=== PATIENT | male | born 1945 | race Caucasian/White ===

== ENCOUNTER 2016-07-13 20:06 | Emergency (ER) | payer OTHER, MEDICARE ==
[~2016-07-13] VITALS: Ht 170.2 cm; Wt 90.2 kg
[~2016-07-13 20:06] MED LIST: ADULT LOW DOSE81 M1 PO; ATENOLOL25 MG PO; ATORVASTATIN CA20 MG PO; FLOMAX0.4 MG PO; FLUOROURACIL30 GM TP; LISINOPRIL10 MG PO; MACROBID100 MG PO; NORCO 5/3251 TABLET PO; OMEPRAZOLE20 MG PO; PYRIDIUM100 MG PO
[2016-07-13 20:34] LABS: ADD MIUA? YES; BILIRUBIN NEGATIVE; BLOOD LARGE; COLOR YELLOW ((YELLOW)); GLUCOSE (STRIP) NEGATIVE; KETONES NEGATIVE; LEUKOCYTES LARGE; NITRITE NEGATIVE; PROTEIN (STRIP) 100; SPECIFIC GRAVITY 1.019 (1.000-1.030); UROBILINOGEN 0.2 MG/DL (0.2-1.0)
[2016-07-13 20:49] LABS: EOSINOPHIL (%) 0 % (0-5); HEMATOCRIT 41.3 % (38.0-50.0); IMMATURE GRANULOCYTE (%) 0.4 % (0.0-0.7); IMMATURE GRANULOCYTE COUNT 0.6 K/uL; LYMPHOCYTE COUNT 0.5 K/uL (1.0-2.8); MCH 30.7 PG (29.0-34.0); MCHC 34.6 G/DL (30.0-36.0); MCV 88.6 FL (86-99); MEAN PLAT.VOLUME 10.5 uM^3 (9.0-12.4); MONOCYTE (%) 1.9 % (3-12); MONOCYTE COUNT 0.3 K/uL (0-0.8); NEUTROPHIL COUNT 13.1 K/uL (1.8-6.4); PLATELET COUNT 188 K/uL (156-360); RBC DIS.WIDTH-CV 13.1 % (11.8-14.6); RBC DIS.WIDTH-SD 41.6 % (39-53); RED BLOOD COUNT 4.66 M/uL (4.00-5.50)
[2016-07-13 20:50] LABS: WHITE BLOOD COUNT 13.9 K/uL (4.1-10.2)
[2016-07-13 20:57] LABS: CHLORIDE 105 mEq/L (99-109); SODIUM 137 mEq/L (136-147)
[2016-07-13 20:58] LABS: GLUCOSE 97 mg/dL (70-99)
[2016-07-13 21:00] LABS: ANION GAP 9 MEQ/L (2-14)
[2016-07-13 21:01] LABS: BACTERIA 1+ /HPF; CASTS NONE SEEN /LPF; CRYSTALS NONE SEEN; EPITHELIAL CELLS NONE SEEN /HPF; MUCUS NONE SEEN /LPF; RED BLOOD CELLS 15-20 /HPF (0-5); UCUL ADDED? YES; WHITE BLOOD CELLS TNTC /HPF (0-5)
[2016-07-13 21:02] LABS: GFR ESTIMATE (CALCULATED) > 59 mL/min/
[2016-07-13 21:03] LABS: UREA NITROGEN (BUN) 20 mg/dL (9-23)
[2016-07-13] MEDS ORDERED: CIPRO500 MG PO (21:28)
[2016-07-13 22:15] VITALS: BP 115/69
== END 2016-07-13 22:15 | disposition home or self-care (01) ==
LOC: EME → EDBD 20:06 → EME 20:06
DX: N39.0 Urinary tract infection, site not specified (principal); I10 Essential (primary) hypertension; E78.5 Hyperlipidemia, unspecified; N40.1 Benign prostatic hyperplasia with lower urinary tract symptoms; Z95.9 Presence of cardiac and vascular implant and graft, unspecified; Z87.891 Personal history of nicotine dependence
CPT/HCPCS: 80048; 81003; 83605; 85025; 87040; 87086; J1956; J2405; J7030